=== PATIENT | female | born 1995 | race American Indian/Alaskan Native ===

== ENCOUNTER 2021-04-08 10:00 | Emergency (ER) | payer BC ==
[2021-04-08] MEDS ORDERED: diphenhydrAMINE 50 MG/ML VIAL IV ONE (10:18)
[2021-04-08] MEDS ORDERED: FAMOTIDINE 20 MG/2 ML INJ IV ONE (10:18)
[2021-04-08] MEDS ORDERED: METOCLOPRAMIDE 10 MG/2 ML INJ IV ONE (10:18)
[2021-04-08] MEDS ORDERED: SODIUM CHLORIDE 0.9% 1000 ML 1,000 ML IV ONE (10:18)
[2021-04-08] MEDS ORDERED: DICYCLOMINE 10 MG/5 ML ORAL LIQD PO ONE (10:18)
[2021-04-08] MEDS ORDERED: DICYCLOMINE 20 MG TAB PO ONE (10:30)
[2021-04-08 11:02] LABS: Basophils % (Auto) 0.3 % (0.0-1.8); Eosinophils % (Auto) 0.3 % (0.0-4.3); Lymphocytes # (Auto) 1.4 K/mm3 (1.2-5.4); Lymphocytes % (Auto) 16.3 % (13.4-35.0); Mean Corpuscular HGB Conc 31 % (30-34); Mean Corpuscular Volume 86 fl (79-97); Monocytes # (Auto) 0.7 K/mm3 (0.0-0.8); Monocytes % (Auto) 7.9 % (0.0-7.3); Platelet Count 296 K/mm3 (140-440); Red Blood Count 4.91 M/mm3 (3.65-5.03); Red Cell Distribution Width 15.6 % (13.2-15.2)
[2021-04-08 11:23] LABS: Alanine Aminotransferase 12 units/L (7-56); Albumin 4.6 g/dL (3.9-5); Blood Urea Nitrogen 9 mg/dL (7-17); Calcium 9.3 mg/dL (8.4-10.2); Hemolysis Index 5
[2021-04-08 11:30] LABS: BUN/Creatinine Ratio 13
[2021-04-08 12:13] LABS: Bacteria,Urine 1+ /HPF (Negative); Bilirubin,Urine NEG (Negative); Blood,Urine NEG (Negative); Color,Urine Yellow (Yellow); Mucus,Urine 1+ /HPF
--- NOTE | 2021-04-08 12:13 | Emergency Department Report ---
ED Abdominal Pain HPI - General Chief Complaint: Abdominal Pain Stated Complaint: ABDOMINAL PAIN Time Seen by Provider: 04/08/21 10:16 Source: patient Mode of arrival: Ambulatory Limitations: No Limitations - History of Present Illness Initial Comments: This is a 25-year-old female nontoxic, well nourished in appearance, no acute signs of distress presents to the ED with c/o of nausea and vomiting and abdominal pain several days. Patient describes vomiting as food content and yellow gastric acid. Patient denies any vaginal discharge or STD concerns. Patient describes abdominal pain as cramping and aching with level of 8/10 diffuse. Patient denies chest pain, short of breath, fever, hemoptysis, blood in stool, chills, headache, stiff neck, numbness or tingling. Patient denies any diarrhea or constipation. Denies any blood in stool. Patient denies any recent travels. Patient denies any allergies or significant past medical history. Denies any alcohol or drug consumption MD Complaint: abdominal pain -: days(s) Location: diffuse Radiation: none Migration to: no migration Severity: mild Severity scale (0 -10): 8 Quality: cramping, aching Consistency: constant Improves With: nothing Worsens With: nothing Associated Symptoms: nausea, vomiting. denies: diarrhea, fever, chills, constipation, dysuria, hematemesis, hematochezia, melena, hematuria, anorexia, syncope - Related Data Previous Rx's Medication Instructions Recorded Last Taken Type Ondansetron [Zofran Odt] 4 mg PO Q8HR PRN #12 tab.rapdis 04/08/21 Unknown Rx cephALEXin [Keflex] 500 mg PO Q8HR #28 cap 04/08/21 Unknown Rx Allergies Allergy/AdvReac Type Severity Reaction Status Date / Time No Known Allergies Allergy Verified 04/08/21 11:07 ED Review of Systems ROS: Stated complaint: ABDOMINAL PAIN Other details as noted in HPI Comment: All other systems reviewed and negative Constitutional: denies: chills, fever Eyes: denies: eye pain, eye discharge, vision change ENT: denies: ear pain, throat pain Respiratory: denies: cough, shortness of breath, wheezing Cardiovascular: denies: chest pain, palpitations Endocrine: no symptoms reported Gastrointestinal: abdominal pain, nausea, vomiting. denies: diarrhea, constipation, hematemesis, melena, hematochezia Genitourinary: denies: urgency, dysuria, discharge Musculoskeletal: denies: back pain, joint swelling, arthralgia Skin: denies: rash, lesions Neurological: denies: headache, weakness, paresthesias Psychiatric: denies: anxiety, depression Hematological/Lymphatic: denies: easy bleeding, easy bruising ED Past Medical Hx - Social History Smoking Status: Never Smoker Substance Use Type: None - Medications Home Medications: Home Medications Medication Instructions Recorded Confirmed Last Taken Type Ondansetron [Zofran Odt] 4 mg PO Q8HR PRN #12 tab.rapdis 04/08/21 Unknown Rx cephALEXin [Keflex] 500 mg PO Q8HR #28 cap 04/08/21 Unknown Rx ED Physical Exam - General Limitations: No Limitations General appearance: alert, in no apparent distress - Head Head exam: Present: atraumatic, normocephalic - Eye Eye exam: Present: normal appearance - Neck Neck exam: Present: normal inspection, full ROM. Absent: lymphadenopathy - Respiratory Respiratory exam: Present: normal lung sounds bilaterally. Absent: respiratory distress, wheezes, rales, rhonchi, stridor, chest wall tenderness, accessory muscle use, decreased breath sounds, prolonged expiratory - Cardiovascular Cardiovascular Exam: Present: regular rate, normal rhythm, normal heart sounds. Absent: bradycardia, tachycardia, irregular rhythm, systolic murmur, diastolic murmur, rubs, gallop - GI/Abdominal GI/Abdominal exam: Present: soft, tenderness (diffuse), normal bowel sounds. Absent: distended, guarding, rebound, rigid, diminished bowel sounds - Extremities Exam Extremities exam: Present: normal inspection, full ROM, normal capillary refill. Absent: tenderness - Back Exam Back exam: Present: normal inspection, full ROM. Absent: tenderness, CVA tenderness (R), CVA tenderness (L), muscle spasm, paraspinal tenderness, vertebral tenderness, rash noted - Neurological Exam Neurological exam: Present: alert, oriented X3, normal gait - Psychiatric Psychiatric exam: Present: normal affect, normal mood - Skin Skin exam: Present: warm, dry, intact, normal color. Absent: rash ED Course Vital Signs 04/08/21 04/08/21 04/08/21 10:09 11:05 12:15 Temperature 98.4 F 98.2 F 98.5 F Pulse Rate 80 83 69 Respiratory 20 12 14 Rate Blood Pressure 135/79 Blood Pressure 111/71 127/75 [Right] O2 Sat by Pulse 99 100 99 Oximetry - Reevaluation(s) Reevaluation #1: 04/08/21 12:12 Patient is speaking in full sentences with no signs of distress noted. Reevaluation #2: 04/08/21 16:05 Patient currently is comfortably resting with no nausea vomiting. A p.o. challenge has been obtained at this time patient tolerated with no nausea vomiting. Waiting for final BMP repeat which will then provide appropriate disposition ED Medical Decision Making - Lab Data Result diagrams: 04/08/21 10:51 04/08/21 15:21 Lab Results 04/08/21 04/08/21 04/08/21 Range/Units 10:51 10:51 10:51 WBC 8.8 (4.5-11.0) K/mm3 RBC 4.91 (3.65-5.03) M/mm3 Hgb 13.0 (10.1-14.3) gm/dl Hct 42.0 (30.3-42.9) % MCV 86 (79-97) fl MCH 27 L (28-32) pg MCHC 31 (30-34) % RDW 15.6 H (13.2-15.2) % Plt Count 296 (140-440) K/mm3 Lymph % (Auto) 16.3 (13.4-35.0) % Graham % (Auto) 7.9 H (0.0-7.3) % Eos % (Auto) 0.3 (0.0-4.3) % Baso % (Auto) 0.3 (0.0-1.8) % Lymph # (Auto) 1.4 (1.2-5.4) K/mm3 Graham # (Auto) 0.7 (0.0-0.8) K/mm3 Eos # (Auto) 0.0 (0.0-0.4) K/mm3 Baso # (Auto) 0.0 (0.0-0.1) K/mm3 Seg Neutrophils % 75.2 H (40.0-70.0) % Seg Neutrophils # 6.6 (1.8-7.7) K/mm3 Sodium 138 (137-145) mmol/L Potassium 3.4 L (3.6-5.0) mmol/L Chloride 99.9 (98-107) mmol/L Carbon Dioxide 19 L (22-30) mmol/L Anion Gap 23 mmol/L BUN 9 (7-17) mg/dL Creatinine 0.7 (0.6-1.2) mg/dL Estimated GFR > 60 ml/min BUN/Creatinine Ratio 13 % Glucose 123 H (65-100) mg/dL Calcium 9.3 (8.4-10.2) mg/dL Total Bilirubin 0.90 (0.1-1.2) mg/dL AST 17 (5-40) units/L ALT 12 (7-56) units/L Alkaline Phosphatase 66 (35-129) units/L Total Protein 7.9 (6.3-8.2) g/dL Albumin 4.6 (3.9-5) g/dL Albumin/Globulin Ratio 1.4 % Lipase 15 (13-60) units/L HCG, Qual Negative (Negative) Urine Color (Yellow) Urine Turbidity (Clear) Urine pH (5.0-7.0) Ur Specific [place] (1.003-1.030) Urine Protein (Negative) mg/dL Urine Glucose (UA) (Negative) mg/dL Urine Ketones (Negative) mg/dL Urine Blood (Negative) Urine Nitrite (Negative) Urine Bilirubin (Negative) Urine Urobilinogen (<2.0) mg/dL Ur Leukocyte Esterase (Negative) Urine WBC (Auto) (0.0-6.0) /HPF Urine RBC (Auto) (0.0-6.0) /HPF U Epithel Cells (Auto) (0-13.0) /HPF Urine Bacteria (Auto) (Negative) /HPF Urine Mucus /HPF 04/08/21 04/08/21 Range/Units 11:43 15:21 WBC (4.5-11.0) K/mm3 RBC (3.65-5.03) M/mm3 Hgb (10.1-14.3) gm/dl Hct (30.3-42.9) % MCV (79-97) fl MCH (28-32) pg MCHC (30-34) % RDW (13.2-15.2) % Plt Count (140-440) K/mm3 Lymph % (Auto) (13.4-35.0) % Graham % (Auto) (0.0-7.3) % Eos % (Auto) (0.0-4.3) % Baso % (Auto) (0.0-1.8) % Lymph # (Auto) (1.2-5.4) K/mm3 Graham # (Auto) (0.0-0.8) K/mm3 Eos # (Auto) (0.0-0.4) K/mm3 Baso # (Auto) (0.0-0.1) K/mm3 Seg Neutrophils % (40.0-70.0) % Seg Neutrophils # (1.8-7.7) K/mm3 Sodium 140 (137-145) mmol/L Potassium 4.4 D (3.6-5.0) mmol/L Chloride 104.5 (98-107) mmol/L Carbon Dioxide 20 L (22-30) mmol/L Anion Gap 20 mmol/L BUN 8 (7-17) mg/dL Creatinine 0.7 (0.6-1.2) mg/dL Estimated GFR > 60 ml/min BUN/Creatinine Ratio 11 % Glucose 105 H (65-100) mg/dL Calcium 8.5 (8.4-10.2) mg/dL Total Bilirubin (0.1-1.2) mg/dL AST (5-40) units/L ALT (7-56) units/L Alkaline Phosphatase (35-129) units/L Total Protein (6.3-8.2) g/dL Albumin (3.9-5) g/dL Albumin/Globulin Ratio % Lipase (13-60) units/L HCG, Qual (Negative) Urine Color Yellow (Yellow) Urine Turbidity Cloudy (Clear) Urine pH 6.0 (5.0-7.0) Ur Specific [place] 1.019 (1.003-1.030) Urine Protein 30 mg/dl (Negative) mg/dL Urine Glucose (UA) Neg (Negative) mg/dL Urine Ketones 20 (Negative) mg/dL Urine Blood Neg (Negative) Urine Nitrite Neg (Negative) Urine Bilirubin Neg (Negative) Urine Urobilinogen 2.0 (<2.0) mg/dL Ur Leukocyte Esterase Tr (Negative) Urine WBC (Auto) 9.0 H (0.0-6.0) /HPF Urine RBC (Auto) 3.0 (0.0-6.0) /HPF U Epithel Cells (Auto) 86.0 H (0-13.0) /HPF Urine Bacteria (Auto) 1+ (Negative) /HPF Urine Mucus 1+ /HPF - Radiology Data [facility] [address] [place] [address] Cat Scan Report Signed Patient: DIEUDONNE AVILA MR#: [id number] : 1995 Acct:[id number] Age/Sex: 25 / F ADM Date: 04/08/21 Loc: ED Attending Dr: Blaine alex Physician: YENNI BEATTY NP Date of Service: 04/08/21 Procedure(s): CT abdomen pelvis w con Accession Number(s): [id number] cc: YENNI BEATTY NP CT ABDOMEN AND PELVIS WITH CONTRAST INDICATION / CLINICAL INFORMATION: abd pain with n/v. TECHNIQUE: Axial CT images were obtained through the abdomen and pelvis after 100 cc Omnipaque [address] scans at this location are performed using CT dose reduction for ALARA by means of automated exposure control. COMPARISON: None available. FINDINGS: LOWER CHEST: No significant abnormality. LIVER: Small hypodensity in the right hepatic dome is too small characterize but likely represents a cyst. No suspicious enhancing lesions. GALLBLADDER: No significant abnormality. BILE DUCTS: No significant abnormality. PANCREAS: No significant abnormality. SPLEEN: No significant abnormality. ADRENALS: No significant abnormality. RIGHT KIDNEY / URETER: No significant abnormality. LEFT KIDNEY / URETER: No significant abnormality. STOMACH / SMALL B OWEL: No significant abnormality. COLON: No significant abnormality. APPENDIX: No significant abnormality. PERITONEUM: Trace free fluid in the pelvis can be physiologic in a young female. No free air. No fluid collection. LYMPH NODES: No significant adenopathy. AORTA / ARTERIES: No significant abnormality. IVC / VEINS: No significant abnormality. URINARY BLADDER: No significant abnormality. REPRODUCTIVE ORGANS: No significant abnormality. ADDITIONAL FINDINGS: None. SKELETAL SYSTEM: No significant abnormality. IMPRESSION: 1. No acute abnormality identified. Incidental findings as above. Signer Name: Bayrno Gray MD Signed: 04/08/2021 2:31 PM Workstation Name: [id number] Transcribed By: DB Dictated By: BAYRON GRAY MD Electronically Authenticated By: BAYRON GRAY MD Signed Date/Time: 04/08/21 1431 DD/ 1429 TD/TT: - Medical Decision Making This is a 25-year-old female that presents with abdominal pain with nausea vomiting. Patient is stable and was examined by me. Negative signs of symptoms of appendicitis. Labs obtained. UA obtained which shows dirty VS. UTI. Will treat patient for suspected UTI until cultures return. CT of abdomen obtained and dictated by the radiologist. Patient is notified of the report with no questions noted by the patient. Vital signs are stable prior to discharge. Patient received medical treatment in the ED which patient stated symptoms has resovled and subsided. Was instructed note to operate any machinery due to possible drowsiness and stated someone will drive the patient home. A by mouth challenge has been obtained and patient tolerated well with no nausea vomiting. Patient was also instructed to Follow-up with a primary care doctor in 3-5 days or if symptoms worsen and continue return to emergency room as soon as possible. At time of discharge, the patient does not seem toxic or ill in appearance. No acute signs of distress noted. Patient agrees to discharge treatment plan of care. No further questions noted by the patient. Critical care attestation.: If time is entered above; I have spent that time in minutes in the direct care of this critically ill patient, excluding procedure time. ED Disposition Clinical Impression: UTI (urinary tract infection) Qualifiers: Urinary tract infection type: acute cystitis Hematuria presence: without hematuria Qualified Code(s): N30.00 - Acute cystitis without hematuria Abdominal pain Qualifiers: Abdominal location: generalized Qualified Code(s): R10.84 - Generalized abdominal pain Nausea & vomiting Qualifiers: Vomiting type: unspecified Qualified Code(s): R11.2 - Nausea with vomiting, unspecified Disposition: 01 HOME / SELF CARE / HOMELESS Is pt being admited?: No Does the pt Need Aspirin: No Condition: Stable Instructions: Urinary Tract Infection, Adult, [id number], Abdominal Pain, Adult, [id number], Nausea and Vomiting, Adult, Abdominal Pain (ED) Additional Instructions: Follow-up with a primary care doctor in 3-5 days or if symptoms worsen and continue return to emergency room as soon as possible. Prescriptions: cephALEXin [Keflex] 500 mg PO Q8HR #28 cap Ondansetron [Zofran Odt] 4 mg PO Q8HR PRN #12 tab.rapdis PRN Reason: Nausea Referrals: PRIMARY CAREMD [Primary Care Provider] - 3-5 Days JESSICA GOODSON MD [Staff Physician] - 3-5 Days Forms: Work/School Release Form(ED) Time of Disposition: 16:14
[2021-04-08] MEDS ORDERED: ONDANSETRON 4 MG/2 ML INJ IV ONE (12:47)
[2021-04-08] MEDS ORDERED: POTASSIUM CHLORIDE ER 20 MEQ TAB PO ONE (12:48)
--- NOTE | 2021-04-08 14:36 | Cat Scan Report ---
CT ABDOMEN AND PELVIS WITH CONTRAST INDICATION / CLINICAL INFORMATION: abd pain with n/v. TECHNIQUE: Axial CT images were obtained through the abdomen and pelvis after 100 cc Omnipaque [address] scans at this location are performed using CT dose reduction for ALARA by means of automated exposure control. COMPARISON: None available. FINDINGS: LOWER CHEST: No significant abnormality. LIVER: Small hypodensity in the right hepatic dome is too small characterize but likely represents a cyst. No suspicious enhancing lesions. GALLBLADDER: No significant abnormality. BILE DUCTS: No significant abnormality. PANCREAS: No significant abnormality. SPLEEN: No significant abnormality. ADRENALS: No significant abnormality. RIGHT KIDNEY / URETER: No significant abnormality. LEFT KIDNEY / URETER: No significant abnormality. STOMACH / SMALL BOWEL: No significant abnormality. COLON: No significant abnormality. APPENDIX: No significant abnormality. PERITONEUM: Trace free fluid in the pelvis can be physiologic in a young female. No free air. No flui d collection. LYMPH NODES: No significant adenopathy. AORTA / ARTERIES: No significant abnormality. IVC / VEINS: No significant abnormality. URINARY BLADDER: No significant abnormality. REPRODUCTIVE ORGANS: No significant abnormality. ADDITIONAL FINDINGS: None. SKELETAL SYSTEM: No significant abnormality. IMPRESSION: 1. No acute abnormality identified. Incidental findings as above. Signer Name: Bayron Gray MD Signed: 04/08/2021 2:31 PM Workstation Name: [id number]
[2021-04-08] MEDS ORDERED: PROMETHAZINE 25 MG TAB PO ONE (15:07)
[2021-04-08 16:06] LABS: Blood Urea Nitrogen 8 mg/dL (7-17); Calcium 8.5 mg/dL (8.4-10.2); Hemolysis Index 8
[2021-04-08 16:10] LABS: BUN/Creatinine Ratio 11
[2021-04-08 16:52] VITALS: BP 111/64
== END 2021-04-08 16:52 | disposition home or self-care (01) ==
LOC: ED 10:00
DX: N30.00 Acute cystitis without hematuria (principal); R10.84 Generalized abdominal pain; R11.2 Nausea with vomiting, unspecified
CPT/HCPCS: 36415; 74177; 80048; 80053; 81001; 83690; 84703; 85025; 87086; 96361; 96374; 96375; 99284; J1200; J2405; J2765; J3490; J7030; Q0169; Q9967; Q0162

== ENCOUNTER 2021-04-09 07:29 | Emergency (ER) | payer BC ==
[2021-04-09 07:57] VITALS: BP 117/76
--- NOTE | 2021-04-09 08:21 | Emergency Department Report ---
ED N/V/D HPI - General Chief complaint: Nausea/Vomiting/Diarrhea Stated complaint: NAUSEA VOMITING Time Seen by Provider: 04/09/21 08:03 Source: patient, RN notes reviewed, old records reviewed Mode of arrival: Ambulatory Limitations: No Limitations - History of Present Illness Initial comments: 25-year-old female with a past medical history of asthma presents to the ER with complaints of nausea and vomiting. Patient states that her symptoms started 3 days ago. She states that she has been vomiting every day, greater than 10 times per day for the past 3 days. She states that emesis is mainly liquids. She states that right before she is about to vomit, chest and abdomen "feels funny" but she denies any pain to those areas. She reports no shortness of breath, cough or URI symptoms. She denies any diarrhea. The last time she had a bowel movement was about a couple days ago. She denies Dysuria, any hematuria or urinary frequency. She states that she had a miscarriage March 20 and has had a menstrual cycle since having the miscarriage. Patient was seen yesterday for similar symptoms. She was given medications to help the nausea and vomiting but she did not go to the pharmacy to get it filled. Reviewed visit from yesterday -- Patient had labs including CT abdomen pelvis. CT abdomen pelvis was negative for anything acute. Labs were unremarkable. Patient was discharged home with Keflex for possible UTI and Zofran. complaint: nausea, vomiting -: days(s) (3) - Related Data Previous Rx's Medication Instructions Recorded Last Taken Type Ondansetron [Zofran Odt] 4 mg PO Q8HR PRN #12 tab.rapdis 04/08/21 Unknown Rx Promethazine [Phenergan] 25 mg MD Q6HR PRN #15 supp.rect 04/09/21 Unknown Rx Allergies Allergy/AdvReac Type Severity Reaction Status Date / Time No Known Allergies Allergy Verified 04/08/21 11:07 ED Review of Systems ROS: Stated complaint: NAUSEA VOMITING Other details as noted in HPI ED Past Medical Hx - Social History Smoking Status: Never Smoker Substance Use Type: None - Medications Home Medications: Home Medications Medication Instructions Recorded Confirmed Last Taken Type Ondansetron [Zofran Odt] 4 mg PO Q8HR PRN #12 tab.rapdis 04/08/21 Unknown Rx Promethazine [Phenergan] 25 mg MD Q6HR PRN #15 supp.rect 04/09/21 Unknown Rx ED Physical Exam - General Limitations: No Limitations General appearance: alert, in no apparent distress, other (Appears uncomfortable , spitting in emesis bag but not actually vomiting) - Head Head exam: Present: atraumatic, normocephalic, normal inspection - Eye Eye exam: Present: normal appearance, PERRL, EOMI Pupils: Present: normal accommodation - ENT ENT exam: Present: normal exam, mucous membranes moist - Neck Neck exam: Present: normal inspection, full ROM. Absent: meningismus - Respiratory Respiratory exam: Present: normal lung sounds bilaterally. Absent: respiratory distress, wheezes, rales, rhonchi - Cardiovascular Cardiovascular Exam: Present: regular rate, normal rhythm, normal heart sounds - GI/Abdominal GI/Abdominal exam: Present: soft. Absent: distended, tenderness, guarding - Neurological Exam Neurological exam: Present: alert, oriented X3, CN II-XII intact, normal gait - Psychiatric Psychiatric exam: Present: normal affect, normal mood - Skin Skin exam: Present: intact ED Course Vital Signs 04/09/21 07:56 Temperature 98.2 F Pulse Rate 75 Respiratory 16 Rate Blood Pressure 117/76 O2 Sat by Pulse 100 Oximetry ED Medical Decision Making - Lab Data Result diagrams: 04/09/21 09:06 04/09/21 09:06 - Radiology Data Radiology results: report reviewed Patient: DIEUDONNE AVILA MR#: [id number] : 1995 Acct:[id number] Age/Sex: 25 / F ADM Date: 04/09/21 Loc: ED Attending Dr: Ordering Physician: JORDAN BORJAS Date of Service: 04/09/21 Procedure(s): XR chest routine 2V Accession Number(s): [id number] cc: JORDAN BORJAS Fluoro Time In Minutes: CHEST 2 VIEWS INDICATION: chest discomfort. Chest pain for 3 days. COMPARISON: none FINDINGS: Support devices: None. Heart: Within normal limits. Lungs/pleura: No acute air space or interstitial disease. No pneumothorax. Additional findings: None. IMPRESSION: No acute findings. Signer Name: Brian Gonzalez Jr, MD Signed: 04/09/2021 9:51 AM Workstation Name: [id number] Transcribed By: TTR Dictated By: BRIAN GONZALEZ JR, MD Electronically Authenticated By: BRIAN GONZALEZ JR, MD Signed Date/Time: 04/09/21950 DD/ 0 TD/TT: - Medical Decision Making All labs reviewed and unremarkable with no significant change compared to her labs from yesterday. Urinalysis was done yesterday, there was a possible concern for UTI, but her preliminary culture shows contamination. I do not see any indication for repeat urinalysis today as patient has no UTI symptoms. Patient reports that she still nauseous despite IV fluids, Reglan and Benadryl. Overall patient is resting comfortably on the recliner, sleeping she was easily aroused, she is not toxic or ill. She is not in any acute respiratory or pain distress. Her abdomen soft and nontender. She is neurologically intact with a normal gait. Her vital signs are stable. Discussed all lab results with patient. Vomiting could be related to a viral illness, but at this time I do not see indication for additional testing, specialist consult or admission to the hospital. Patient was prescribed Zofran yesterday, but claims she could not get the prescription filled when she was discharged so I encouraged and stressed to patient importance of getting the medications filled. Phenergan will be added to her regimen. Recommended to her to do a bland diet and lots of fluids. Patient expressed understanding of instructions and agree with plan. Patient stable at time of discharge. Critical care attestation.: If time is entered above; I have spent that time in minutes in the direct care of this critically ill patient, excluding procedure time. ED Disposition Clinical Impression: Nausea & vomiting Disposition: 01 HOME / SELF CARE / HOMELESS Is pt being admited?: No Does the pt Need Aspirin: No Condition: Stable Instructions: Nausea and Vomiting, Adult, [id number] Additional Instructions: I recommend that you get the Zofran filled, you will also be prescribed Phenergan suppositories to take in addition to the Zofran, and I recommend that you try to do a bland diet and and fluids. You do not have to take the Keflex, as it does not appear that you have a UTI based on the preliminary culture. follow-up with the primary care doctor and or GI specialist listed on discharge instructions. Return to the ER if your symptoms changes or worsens in any way. Prescriptions: Promethazine [Phenergan] 25 mg MD Q6HR PRN #15 supp.rect PRN Reason: nausea/vomiting Referrals: SRINATH ORONA MD [Staff Physician] - 3-5 Days JESSICA GOODSON MD [Staff Physician] - 3-5 Days [facility] [Provider Group] - 3-5 Days Forms: Work/School Release Form(ED) Time of Disposition: 12:01
[2021-04-09] MEDS ORDERED: SODIUM CHLORIDE 0.9% 1000 ML 1,000 ML IV ONE (08:22)
[2021-04-09] MEDS ORDERED: diphenhydrAMINE 50 MG/ML VIAL IV ONE (08:23)
[2021-04-09] MEDS ORDERED: METOCLOPRAMIDE 10 MG/2 ML INJ IV ONE (08:23)
[2021-04-09 09:33] LABS: Basophils % (Auto) 0.4 % (0.0-1.8); Hematocrit 41.1 % (30.3-42.9); Hemoglobin 13.2 gm/dl (10.1-14.3); Lymphocytes # (Auto) 1.6 K/mm3 (1.2-5.4); Lymphocytes % (Auto) 15.8 % (13.4-35.0); Mean Corpuscular HGB Conc 32 % (30-34); Mean Corpuscular Volume 87 fl (79-97); Monocytes # (Auto) 0.7 K/mm3 (0.0-0.8); Monocytes % (Auto) 6.9 % (0.0-7.3); Platelet Count 300 K/mm3 (140-440); Red Blood Count 4.76 M/mm3 (3.65-5.03); Red Cell Distribution Width 15.7 % (13.2-15.2)
[2021-04-09 09:40] LABS: Alanine Aminotransferase 11 units/L (7-56); Albumin 4.4 g/dL (3.9-5); Blood Urea Nitrogen 9 mg/dL (7-17); Calcium 8.9 mg/dL (8.4-10.2); Hemolysis Index 38
[2021-04-09 09:43] LABS: BUN/Creatinine Ratio 13
--- NOTE | 2021-04-09 09:56 | XRay Report ---
CHEST 2 VIEWS INDICATION: chest discomfort. Chest pain for 3 days. COMPARISON: none FINDINGS: Support devices: None. Heart: Within normal limits. Lungs/pleura: No acute air space or interstitial disease. No pneumothorax. Additional findings: None. IMPRESSION: No acute findings. Signer Name: Brian Gonzalez Jr, MD Signed: 04/09/2021 9:51 AM Workstation Name: [id number]
[2021-04-09] MEDS ORDERED: METOCLOPRAMIDE 10 MG/2 ML INJ IV SCH (10:30)
[2021-04-09] MEDS ORDERED: diphenhydrAMINE 50 MG/ML VIAL IV SCH (10:30)
[2021-04-09] MEDS ORDERED: ONDANSETRON 4 MG/2 ML INJ IV ONE (12:00)
== END 2021-04-09 12:27 | disposition home or self-care (01) ==
LOC: ED 07:29
DX: R11.2 Nausea with vomiting, unspecified (principal)
CPT/HCPCS: 36415; 71046; 80053; 83690; 83735; 84703; 85025; 96361; 96374; 96375; 96376; 99284; J1200; J2405; J2765

== ENCOUNTER 2021-12-02 23:45 | Emergency (ER) | payer SELFPAY ==
[2021-12-03] MEDS ORDERED: ONDANSETRON 4 MG/2 ML INJ IV ONE (00:49)
[2021-12-03] MEDS ORDERED: SODIUM CHLORIDE 0.9% 1000 ML 1,000 ML IV ONE (00:49)
[2021-12-03 01:09] LABS: Basophils # (Auto) 0.1 K/mm3 (0.0-0.1); Basophils % (Auto) 0.5 % (0.0-1.8); Eosinophils % (Auto) 0.2 % (0.0-4.3); Hematocrit 38.4 % (30.3-42.9); Hemoglobin 12.4 gm/dl (10.1-14.3); Lymphocytes # (Auto) 1.7 K/mm3 (1.2-5.4); Mean Corpuscular HGB Conc 32 % (30-34); Mean Corpuscular Volume 88 fl (79-97); Monocytes # (Auto) 0.4 K/mm3 (0.0-0.8); Monocytes % (Auto) 2.9 % (0.0-7.3); Platelet Count 287 K/mm3 (140-440); Red Blood Count 4.37 M/mm3 (3.65-5.03); Red Cell Distribution Width 14.6 % (13.2-15.2)
--- NOTE | 2021-12-03 01:48 | Emergency Department Report ---
ED Abdominal Pain HPI - General Chief Complaint: Abdominal Pain Stated Complaint: NAUSEA/VOMTING Time Seen by Provider: 12/03/21 00:51 Source: patient, EMS Mode of arrival: Stretcher Limitations: No Limitations - History of Present Illness Initial Comments: 26-year-old female with a history of 2 pregnancies and 2 miscarriage who now presents with nausea and vomiting that started 2 days ago progressively getting worse. Patient also reports some diffuse abdominal cramping/discomfort. She reported that she has not been able to tolerate any fluids or food. She reports starting her menstrual a day before the symptoms started. No fever but she reported. No other modifying or associated factors reported. MD Complaint: abdominal pain Severity scale (0 -10): 0 - Related Data Previous Rx's Medication Instructions Recorded Last Taken Type Ondansetron [Zofran Odt] 4 mg PO Q8HR PRN #12 tab.rapdis 04/08/21 Unknown Rx Promethazine [Phenergan] 25 mg IL Q6HR PRN #15 supp.rect 04/09/21 Unknown Rx Metoclopramide [Reglan] 10 mg PO TID 10 Days #30 tab NS 12/03/21 Unknown Rx Omeprazole Magnesium [PriLOSEC Otc] 20 mg PO BID 30 Days #60 tab NS 12/03/21 Unknown Rx Promethazine [Phenergan] 25 mg IL Q6HR PRN 4 Days #12 12/03/21 Unknown Rx supp.rect NS Allergies Allergy/AdvReac Type Severity Reaction Status Date / Time No Known Allergies Allergy Verified 04/08/21 11:07 ED Review of Systems ROS: Stated complaint: NAUSEA/VOMTING Other details as noted in HPI Comment: All other systems reviewed and negative Gastrointestinal: abdominal pain, nausea, vomiting. denies: diarrhea, constipation ED Past Medical Hx - Past Medical History Previous Medical History?: Yes Hx Asthma: Yes - Surgical History Past Surgical History?: No - Social History Smoking Status: Never Smoker Substance Use Type: None - Medications Home Medications: Home Medications Medication Instructions Recorded Confirmed Last Taken Type Ondansetron [Zofran Odt] 4 mg PO Q8HR PRN #12 tab.rapdis 04/08/21 Unknown Rx Promethazine [Phenergan] 25 mg IL Q6HR PRN #15 supp.rect 04/09/21 Unknown Rx Metoclopramide [Reglan] 10 mg PO TID 10 Days #30 tab NS 12/03/21 Unknown Rx Omeprazole Magnesium [PriLOSEC Otc] 20 mg PO BID 30 Days #60 tab NS 12/03/21 Unknown Rx Promethazine [Phenergan] 25 mg IL Q6HR PRN 4 Days #12 12/03/21 Unknown Rx supp.rect NS ED Physical Exam - General Limitations: No Limitations General appearance: alert, in no apparent distress - Head Head exam: Present: normal inspection - Eye Eye exam: Present: normal appearance Pupils: Present: normal accommodation - ENT ENT exam: Present: normal exam, normal orophraynx, mucous membranes dry - Neck Neck exam: Present: normal inspection, full ROM. Absent: tenderness - Respiratory Respiratory exam: Present: normal lung sounds bilaterally. Absent: respiratory distress, accessory muscle use - Cardiovascular Cardiovascular Exam: Present: regular rate, normal rhythm, normal heart sounds - GI/Abdominal GI/Abdominal exam: Present: soft, tenderness (mild diffuse tenderness ), normal bowel sounds. Absent: distended, guarding, rebound - Extremities Exam Extremities exam: Present: normal inspection, full ROM, normal capillary refill. Absent: tenderness, pedal edema - Back Exam Back exam: Absent: tenderness, CVA tenderness (R), CVA tenderness (L) - Neurological Exam Neurological exam: Present: alert, oriented X3 - Psychiatric Psychiatric exam: Present: normal affect, normal mood - Skin Skin exam: Present: warm, normal color ED Course Vital Signs 12/03/21 12/03/21 12/03/21 00:18 00:32 02:00 Temperature 97.3 F L 98.3 F 97.3 F L Pulse Rate 65 53 L 59 L Respiratory 18 15 15 Rate Blood Pressure 130/90 Blood Pressure 136/83 110/72 [Left] O2 Sat by Pulse 98 97 99 Oximetry 12/03/21 05:10 Temperature Pulse Rate 53 L Respiratory 15 Rate Blood Pressure Blood Pressure 111/76 [Left] O2 Sat by Pulse 100 Oximetry ED Medical Decision Making - Lab Data Result diagrams: 12/03/21 00:42 12/03/21 00:42 - Medical Decision Making Here with abdominal pain--differential could be but not limited to appendicitis, diverticulitis, cholecystitis, cholelithiasis, nephrolithiasis, gastritis, pancreatitis, duodenitis, colitis, irritable bowel syndrome, cystitis, so in order to rule this out we will go ahead and order routine acute abdomen that include CBC, CMP, urinalysis, and CT imaging of the abdomen/pelvic. In the meantime will given ivf ns 1L bolus x 1 and zofran 4 mg Iv x 1-- Lab reviewed and noted with leukocytosis likely as result of acute reactant considering nausea and emesis--- symptoms is consistent with gastroenteritis considering unremarkable CT abd/pel -- pt reports improvement in symptoms --so will discharge home on reglan and IL promethazine with prilosec and close follow up with her PCP Critical care attestation.: If time is entered above; I have spent that time in minutes in the direct care of this critically ill patient, excluding procedure time. ED Disposition Clinical Impression: Gastroenteritis Nausea and vomiting Qualifiers: Vomiting type: unspecified Qualified Code(s): R11.2 - Nausea with vomiting, unspecified Abdominal pain Qualifiers: Abdominal location: generalized Qualified Code(s): R10.84 - Generalized abdominal pain Disposition: 01 HOME / SELF CARE / HOMELESS Is pt being admited?: No Does the pt Need Aspirin: No Condition: Stable Instructions: Abdominal Pain (ED), Abdominal Pain, Adult, [id number], Nausea and Vomiting, Adult, [id number] Additional Instructions: Start with bland diet advance as tolerated Increase your daily fluid to help your hydration Please avoid any heavy fatty male or spicy food at this time to prevent recurrence of your symptoms Call and schedule follow-up with your primary doctor in the next 3 to 5 days for progress Please do not hesitate to call or return to emergency if your symptoms worsen Prescriptions: Promethazine [Phenergan] 25 mg IL Q6HR PRN 4 Days #12 supp.rect NS PRN Reason: Nausea And Vomiting Omeprazole Magnesium [PriLOSEC Otc] 20 mg PO BID 30 Days #60 tab NS Metoclopramide [Reglan] 10 mg PO TID 10 Days #30 tab NS Time of Disposition: 05:32
[2021-12-03 02:01] LABS: Alanine Aminotransferase 10 units/L (7-56); Albumin 4.3 g/dL (3.9-5); BUN/Creatinine Ratio 14; Blood Urea Nitrogen 13 mg/dL (7-17); Calcium 9.3 mg/dL (8.4-10.2); Hemolysis Index 15
[2021-12-03 02:58] LABS: Bacteria,Urine 1+ /HPF (Negative); Mucus,Urine 3+ /HPF
[2021-12-03 03:08] LABS: Bilirubin,Urine Negative (Negative); Blood,Urine Large (Negative); Color,Urine Yellow (Yellow); RBC,Urine > 182.0 /HPF (0.0-6.0)
--- NOTE | 2021-12-03 05:31 | Cat Scan Report ---
CT ABDOMEN AND PELVIS WITH CONTRAST INDICATION / CLINICAL INFORMATION: Unspecified abdominal pain. TECHNIQUE: Axial CT images were obtained through the abdomen and pelvis after an unspecified amount and type of IV contrast. All CT scans at this location are performed using CT dose reduction for ALARA by means of automated exposure control. COMPARISON: CT abdomen and pelvis with contrast from 04/08/2021. FINDINGS: LOWER CHEST: No significant abnormality. LIVER: There is an unchanged cyst located posteriorly in the right hepatic lobe. No other significant abnormality. GALLBLADDER: No significant abnormality. BILE DUCTS: No significant abnormality. PANCREAS: No significant abnormality. SPLEEN: No significant abnormality. ADRENALS: No significant abnormality. RIGHT KIDNEY/URETER: No significant abnormality. LEFT KIDNEY/URETER: No significant abnormality. STOMACH/SMALL BOWEL: No significant abnormality. COLON: No significant abnormality. APPENDIX: No significant abnormality. PERITONEUM: No free fluid. No free air. No fluid collection. LYMPH NODES: No significant adenopathy. VASCULATURE: No significant abnormality. URINARY BLADDER: No significant abnormality. REPRODUCTIVE ORGANS: No significant abnormality. ADDITIONAL FINDINGS: None. BONES: No significant abnormality IMPRESSION: 1. No significant abnormality to explain the patient's abdominal pain. Signer Name: Suraj Gonzalez MD Signed: 12/03/2021 5:26 AM Workstation Name: [id number]
[2021-12-03 05:54] VITALS: BP 112/70
== END 2021-12-03 05:52 | disposition home or self-care (01) ==
LOC: ED 23:45
DX: K52.9 Noninfective gastroenteritis and colitis, unspecified (principal); R11.2 Nausea with vomiting, unspecified; R10.9 Unspecified abdominal pain; J45.909 Unspecified asthma, uncomplicated
CPT/HCPCS: 36415; 74177; 80053; 81001; 83690; 84703; 85025; 87086; 96361; 96374; 99284; J2405; J7030; Q9967

== ENCOUNTER 2021-12-06 03:46 | Emergency (ER) | payer SELFPAY ==
[2021-12-06 06:31] VITALS: BP 138/72
== END 2021-12-06 13:56 | disposition left against medical advice (07) ==
LOC: ED 03:46
DX: R42 Dizziness and giddiness (principal); Z53.21 Procedure and treatment not carried out due to patient leaving prior to being seen by health care provider